=== PATIENT | male | born 1980 | race Caucasian/White ===

== ENCOUNTER 2019-02-08 09:42 | Emergency (ER) | payer MEDICARE ==
[2019-02-08 09:56] VITALS: RESP 20; O2SAT 97
--- NOTE | 2019-02-08 11:03 | RAD ---
Date of service: 02/08/2019 PROCEDURE: Right Knee Radiographs. HISTORY: pain COMPARISON: None. TECHNIQUE: 2 views obtained. FINDINGS: BONES: Normal. No fracture. JOINTS: Normal. No osteoarthritis. JOINT EFFUSION: None. OTHER FINDINGS: None. IMPRESSION: Normal radiographs of the right knee.
--- NOTE | 2019-02-08 11:11 | C.PDOC ---
History Of Present Illness 38 y/o male, w/PMhx of psychiatric illness, presents to the ER complaining of right knee pain which has been present for the past 1 month. Patient states that the pain is worse with walking. Patient reports that he saw his PMD Dr. Palafox in December 2018 and ordered an X-Ray.. He notes that he had negative X-Ray on 12/20/18. He notes that he followed up with . He states that she told him to go to the ER if the pain became worse. Denies having trauma, fall,injuries, fever,chills, nausea, and vomiting. Chief Complaint (Nursing): Lower Extremity Problem/Injury History Per: Patient History/Exam Limitations: no limitations Onset/Duration Of Symptoms: Days Current Symptoms Are (Timing): Still Present Severity: Moderate Past Medical History Reviewed: Historical Data, Nursing Documentation, Vital Signs Vital Signs: Last Vital Signs Temp 97.7 F 02/08/19 09:53 Pulse 76 02/08/19 09:53 Resp 20 02/08/19 09:53 BP 136/97 H 02/08/19 09:53 Pulse Ox 97 02/08/19 09:53 Primary Care Provider: Umair Palafox - Medical History PMH: Anxiety Surgical History: No Surg Hx Family History: States: No Known Family Hx - Social History Hx Alcohol Use: No Hx Substance Use: No - Immunization History Hx Tetanus Toxoid Vaccination: No Hx Influenza Vaccination: No Hx Pneumococcal Vaccination: No Review Of Systems Except As Marked, All Systems Reviewed And Found Negative. Musculoskeletal: Positive for: Other (right knee pain) Neurological: Negative for: Weakness, Numbness Physical Exam - Physical Exam Appears: Non-toxic, No Acute Distress Skin: Normal Color, Warm, Dry Head: Atraumatic, Normacephalic Eye(s): bilateral: Normal Inspection Extremity: Normal ROM, Tenderness (tenderness on medial aspect of right knee), No Swelling Pulses: Left Dorsalis Pedis: Normal, Right Dorsalis Pedis: Normal Neurological/Psych: Oriented x3, Normal Speech, Normal Motor, Normal Sensation Gait: Other (pt is walking with limp) ED Course And Treatment O2 Sat by Pulse Oximetry: 97 (RA) Pulse Ox Interpretation: Normal - Other Rad X-Ray-Right Knee X-Ray: Viewed By Me, Read By Radiologist Interpretation: Date of service: 02/08/2019. PROCEDURE: Right Knee Radiographs. HISTORY: pain. COMPARISON: None. TECHNIQUE: 2 views obtained. FINDINGS: BONES: Normal. No fracture. JOINTS: Normal. No osteoarthritis. JOINT EFFUSION: None. OTHER FINDINGS: None. IMPRESSION: Normal radiographs of the right knee. Medical Decision Making Medical Decision Making: Plan: --Motrin PO --X-Ray-Right Knee Disposition Counseled Patient/Family Regarding: Studies Performed, Diagnosis, Need For Followup - Disposition Referrals: Umair Palafox MD [Medical Doctor] - Disposition: HOME/ ROUTINE Disposition Time: 11:10 Condition: GOOD Additional Instructions: JEN SCHNEIDER, thank you for letting us take care of you today. Your provider was Glenis Vásquez MD and you were treated for RT KNEE PAIN. The emergency medical care you received today was directed at your acute symptoms. If you were prescribed any medication, please fill it and take as directed. It may take several days for your symptoms to resolve. Return to the Emergency Department if your symptoms worsen, do not improve, or if you have any other problems. Please contact your doctor for a follow up appointment in 2-3 days. Bring any paperwork you were given at discharge with you along with any medications you are taking to your follow up visit. Our treatment cannot replace ongoing medical care by a primary care provider outside of the emergency department. Thank you for allowing the [facility] team to be part of your care today. Instructions: Knee Pain (DC) Forms: [facility] (M[place]ese), General Discharge Instructions - POA Present On Arrival: None - Clinical Impression Clinical Impression: Knee pain - Scribe Statement The provider has reviewed the documentation as recorded by the Lakeishaibbela Rodriguez Provider Attestation: All medical record entries made by the Scribe were at my direction and personally dictated by me. I have reviewed the chart and agree that the record accurately reflects my personal performance of the history, physical exam, medical decision making, and the department course for this patient. I have also personally directed, reviewed, and agree with the discharge instructions and disposition.
[2019-02-08 11:12] VITALS: BP 134/93; PULSE 66; TEMP 98.8
== END 2019-02-08 11:18 | disposition home or self-care (01) ==
LOC: C.ER 09:42
DX: M25.561 Pain in right knee (principal)